=== PATIENT | female | born 1960 | race Caucasian/White ===

== ENCOUNTER → 2024-06-25 14:35 | Outpatient (REF) | payer MEDICARE, SELFPAY | LOC: HWWDC 14:35 | PROVIDERS: ATTENDING PHYSICIAN Student in an Organized Health Care Education/Training Program; FAMILY PHYSICIAN Hospitalist | DX: Z12.31 Encounter for screening mammogram for malignant neoplasm of breast (principal) | CPT/HCPCS: 77063; 77067 ==

== ENCOUNTER → 2024-07-07 09:14 | Outpatient (REF) | payer MEDICARE, SELFPAY | LOC: WDC 09:14 | PROVIDERS: ATTENDING PHYSICIAN Student in an Organized Health Care Education/Training Program; FAMILY PHYSICIAN Hospitalist | DX: R92.8 Other abnormal and inconclusive findings on diagnostic imaging of breast (principal) | CPT/HCPCS: 76642 ==

== ENCOUNTER → 2024-08-18 09:10 | Outpatient (REF) | payer MEDICARE, SELFPAY | LOC: HWRAD 09:10 | PROVIDERS: ATTENDING PHYSICIAN Hospitalist; REFERRING PHYSICIAN Family Medicine | DX: R79.89 Other specified abnormal findings of blood chemistry (principal) | CPT/HCPCS: 76700 ==

== ENCOUNTER → 2024-09-30 10:46 | Outpatient (REF) | payer MEDICARE, SELFPAY | LOC: PAVMRI 10:46 | PROVIDERS: ATTENDING PHYSICIAN Hospitalist | DX: K76.9 Liver disease, unspecified (principal) | CPT/HCPCS: 74183; A9575 ==

== ENCOUNTER → 2025-05-15 08:54 | Outpatient (REF) | payer MEDICARE, SELFPAY | LOC: HWRAD 08:54 | PROVIDERS: ATTENDING PHYSICIAN Physician Assistant Medical; FAMILY PHYSICIAN Hospitalist | DX: K74.60 Unspecified cirrhosis of liver (principal) | CPT/HCPCS: 76700 ==

== ENCOUNTER 2025-06-15 08:10 | Outpatient (REF) | payer MEDICARE, SELFPAY ==
[2025-06-15] VITALS (14 sets, daily range): BP systolic 62–160; BP diastolic 79–93
[2025-06-15 08:40] LABS: Hematocrit 46.1 % (37.0-47.0); Hemoglobin 14.7 g/dL (12.0-16.0); Mean Corp Hgb Conc. 31.9 g/dL (33.0-37.0); Mean Corpuscular Volume 85.7 fL (81.0-99.0); Nucleated Red Blood Cells % 0 %; Platelet Count 169 10^3/uL (130-400); Red Cell Dist. Width 16.3 % (11.5-14.5)
[2025-06-15 08:48] LABS: INR 1.02; PT 13.8 Sec (11.4-14.6)
== END 2025-06-15 12:10 | disposition home or self-care (01) ==
LOC: RADI 08:10
PROVIDERS: ATTENDING PHYSICIAN Physician Assistant Medical; FAMILY PHYSICIAN Hospitalist
DX: K74.60 Unspecified cirrhosis of liver (principal); K73.9 Chronic hepatitis, unspecified; D68.8 Other specified coagulation defects
CPT/HCPCS: 36415; 47000; 76942; 85025; 85610; 88307; 88313; 99152; 99153